=== PATIENT | male | born 1955 | race Caucasian/White ===

== ENCOUNTER 2024-09-21 17:54 | Inpatient (IN) | payer OTHER ==
[~2024-09-21] VITALS: Ht 172.7 cm; Wt 136.0 kg
--- NOTE | 2024-09-21 18:25 | DVH ---
EXAMINATION: AP portable chest radiograph CLINICAL HISTORY: Shortness of breath COMPARISON: None FINDINGS: Interstitial prominence. Diffuse patchy airspace opacities in both lungs, more apparent on the right. No definite pleural effusion or pneumothorax. Aortic calcifications. The cardiomediastinal silhouet te otherwise appears within normal limits given technique. IMPRESSION: Multifocal airspace opacities may reflect infection and/or edema.
[2024-09-21] MEDS: ALBUTEROL SULF 2.5 MG/0.5ML(0.5%) NEB SOLN NEB ONE ×2 (18:36→20:59)
[2024-09-21] MEDS: IPRATROPIUM BROM 0.5 MG/2.5ML INH SOL NEB ONE ×2 (18:36→20:59)
[2024-09-21 18:38] LABS: Basophils # (auto) 0.1 10 ^3/uL (0-0.2); Basophils % (auto) 0.9 % (0.0-2.0); Eosinophils # (auto) 0.3 10 ^3/uL (0-0.8); Eosinophils % (auto) 3.3 % (0.0-7.0); Hematocrit 42.5 % (41.0-53.0); Hemoglobin 14.3 g/dL (13.5-17.5); Lymphocytes # (auto) 1.3 10 ^3/uL (0.4-5.4); Lymphocytes % (auto) 16.1 % (10.0-50.0); Mean Corpuscular Hgb Conc. 33.5 g/dL (32.0-36.0); Mean Corpuscular Volume 86.4 fL (80.0-100.0); Monocytes # (auto) 0.5 10 ^3/uL (0-1.3); Monocytes % (auto) 6.8 % (0.0-12.0); Neutrophils # (auto) 5.9 10 ^3/uL (1.6-8.6); Neutrophils % (auto) 72.9 % (37.0-80.0); Nucleated Red Blood Cells % 0.7 %; Platelet Count (auto) 412 10^3/uL (140-450); Red Blood Cells 4.92 10^6/uL (4.5-5.90); Red Cell Distribution Width 14.3 % (11.8-14.3)
[2024-09-21 18:39] LABS: Chloride 98 mmol/L (98-107); Sodium 136 mmol/L (136-145)
[2024-09-21 18:40] LABS: Anion Gap 9 (5-15); Calcium 9.1 mg/dL (8.7-10.4); Carbon Dioxide 29 mmol/L (20-31)
[2024-09-21] MEDS: DexAMETHasone SOD PHOS 10MG/1ML VIAL INJ IV ONE (18:40)
--- NOTE | 2024-09-21 18:41 | ECG ---
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
[2024-09-21 18:45] LABS: BUN/Creatinine Ratio 24.5 (10.0-20.0)
[2024-09-21 18:47] LABS: Blood Urea Nitrogen 35 mg/dL (9-23); Glucose 280 mg/dL (74-106); Potassium 3.5 mmol/L (3.5-5.1)
[2024-09-21 19:20] VITALS: PULSE 88; RESP 20; O2SAT 90
[2024-09-21] MEDS: AZITHROMYCIN 500MG/ 250ML 250 ML IV ONE (20:15)
--- NOTE | 2024-09-21 20:25 | ED.PDOC ---
History of Present Illness HPI Comments 69 y/o M, with a history of asthma, DM, HTN, and morbid obesity, is BIBA for c/o shortness of breath and mild chest pain, today. Per EMS report, patient endorses on sudden additional onset of symptoms, today, after dealing with flu-like symptoms prior for 1 week. He is stated to have, recently, returned from [place] trip. Patient was noted to have been found on 85%RA on scene and was placed on 4lpm NC en route, with SPO2 improving to 95% upon arrival to ED. Patient has no reported palpitations, nausea, vomiting, fever, chills, or other associated symptoms or modifiers at this time. Chief Complaint: Shortness of Breath Time Seen by MD: 18:00 Reviewed Notes: Nurses Notes, Store Receiving Clerk Notes, Medications, Allergies Allergies: Coded Allergies: Penicillins (Verified Allergy, Unknown, 09/21/24) Information Source: Patient, Emergency Med Personnel Mode of Arrival: EMS Severity: Moderate Timing: Hours Duration: Since onset Prehospital treatment: 12 Lead EKG, Civil Structural Engineer, Oxygen Past Medical History PAST MEDICAL HISTORY: Asthma, DM, HTN Surgical History: Denies all surgeries Family History Family History: Unknown Social History Smoker: Non-Smoker Alcohol: Denies ETOH Use Drugs: Denies Drug Use Lives In: Home Constitutional: denies: chills, diaphoresis, fatigue, fever, malaise, sweats, weakness, others EENTM: denies: blurred vision, double vision, ear bleeding, ear discharge, ear drainage, ear pain, ear ringing, eye pain, eye redness, hearing loss, mouth pain, mouth swelling, nasal discharge, nose bleeding, nose congestion, nose pain, photophobia, tearing, throat pain, throat swelling, voice changes, others Respiratory: reports: shortness of breath; denies: cough, hemoptysis, orthopnea, SOB at rest, SOB with excertion, stridor, wheezing, others Cardiovascular: reports: chest pain; denies: dizzy spells, diaphoresis, Dyspnea on exertion, edema, irregular heart beat, left arm pain, lightheadedness, pa lpitations, PND, syncope, others Gastrointestinal: denies: abdomen distended, abdominal pain, blood streaked bowels, constipated, diarrhea, dysphagia, difficulty swallowing, hematemesis, melena, nausea, poor appetite, poor fluid intake, rectal bleeding, rectal pain, vomiting, others Genitourinary: denies: burning, dysuria, flank pain, frequency, hematuria, incontinence, penile discharge, penile sore, pain, testicle pain, testicle swelling, urgency, others Neurological: denies: dizziness, fainting, headache, left sided numbness, left sided weakness, numbness, paresthesia, pre-existing deficit, right sided numbness, right sided weakness, seizure, speech problems, tingling, tremors, weakness, others Musculoskeletal: denies: back pain, gout, joint pain, joint swelling, muscle pain, muscle stiffness, neck pain, others Integumetry: denies: bruises, change in color, change in hair/nails, dryness, laceration, lesions, lumps, rash, wounds, others Allergic/Immunocompromised: denies: Difficulty Healing, Frequent Infections, Hives, Itching, others Hematologic/Lymphatic: denies: anemia, blood clots, easy bleeding, easy br uising, swollen glands, others Endocrine: denies: excessive hunger, excessive sweating, excessive thirst, excessive urination, flushing, intolerance to cold, intolerance to heat, unexplained weight gain, unexplained weight loss, others Psychiatric: denies: anxiety, bipolar disorder, depression, hopeless, panic disorder, schizophrenia, sleepless, suicidal, others All Other Systems: Reviewed and Negative (negative unless otherwise stated above or in HPI) Physical Exam General Appearance: Moderate Distress (Moderate distress due to shortness a breath concerns), Obese HEENT: Normal ENT Inspection, Pharynx Normal, TMs Normal Neck: Full Range of Motion, Non-Tender, Normal, Normal Inspection Respiratory: Other (Course breath sounds noted in multiple areas of bilateral lung hinson. No accessory muscle use, but air hunger without oxygen.) Cardiovascular: No Edema, No JVD, No Murmur, No Gallop, Normal Peripheral Pulses, Regular Rate/Rhythm Breast Exam: Deferred Gastrointestinal: No Organomegaly, Non Tender, No Pulsatile Mass, Normal Bowel Sounds, Soft Genitalia: Deferred Pelvic: Deferred Rectal: Deferred Extremities: No calf tenderness, Normal capillary refill, Normal inspection, Normal range of motion, Non-tender, No pedal edema Neurologic: Alert, No Motor Deficits, Normal Affect, Normal Mood, No Sensory Deficits Cerebellar Function: Normal Reflexes: Normal Skin: Dry, Normal Color, Warm Lymphatic: No Adenopathy Was a procedure done? Was a procedure done?: No EKG EKG : Pulse Rate (adult): 91 [place]: Normal Cardiac Rhythm: NSR Block: RBBB Hypertrophy: None ST: Normal Differential Dx Considerations may include: URI, viral syndrome, bronchitis, PNA, [place], asthma exacerbation, acute respiratory distress X-Ray, Labs, Meds, VS Vital Signs Date Time Temp Pulse Resp B/P (MAP) Pulse Ox O2 Delivery O2 Flow Rate FiO2 09/21/24 20:59 22 90 Nasal Cannula* 5 40 09/21/24 20:25 91 09/21/24 20:00 89 09/21/24 19:20 88 20 90 Nasal Cannula* 5 40 09/21/24 18:36 20 93 Nasal Cannula* 4 36 09/21/24 18:30 86 09/21/24 18:16 98.2 88 24 197/89 (125) 96 09/21/24 18:13 24 96 Nasal Cannula* 4 36 Lab Test 09/21/24 19:15 09/21/24 18:19 Range/Units Troponin I High Sensitivity 19 19 </=54 ng/L White Blood Count 8.0 4.4-10.8 10^3/uL Red Blood Count 4.92 4.5-5.90 10^6/uL Hemoglobin 14.3 13.5-17.5 g/dL Hematocrit 42.5 41.0-53.0 % Mean Corpuscular Volume 86.4 80.0-100.0 fL Mean Corpuscular Hemoglobin 29.0 28.0-32.0 pg Mean Corpuscular Hemoglobin Concent 33.5 32.0-36.0 g/dL Red Cell Distribution Width 14.3 11.8-14.3 % Platelet Count 412 140-450 10^3/uL Mean Platelet Volume 7.2 6.9-10.8 fL Neutrophils (%) (Auto) 72.9 37.0-80.0 % Lymphocytes (%) (Auto) 16.1 10.0-50.0 % Monocytes (%) (Auto) 6.8 0.0-12.0 % Eosinophils (%) (Auto) 3.3 0.0-7.0 % Basophils (%) (Auto) 0.9 0.0-2.0 % Neutrophils # (Auto) 5.9 1.6-8.6 10 ^3/uL Lymphocytes # (Auto) 1.3 0.4-5.4 10 ^3/uL Monocytes # (Auto) 0.5 0-1.3 10 ^3/uL Eosinophils # (Auto) 0.3 0-0.8 10 ^3/uL Basophils # (Auto) 0.1 0-0.2 10 ^3/uL Nucleated Red Blood Cells 0.7 % D-Dimer, Quantitative 2.37 H 0.0-0.49 mg/L FEU Sodium Level 136 136-145 mmol/L Potassium Level 3.5 3.5-5.1 mmol/L Chloride Level 98 98-107 mmol/L Carbon Dioxide Level 29 20-31 mmol/L Anion Gap 9 5-15 Blood Urea Nitrogen 35 H 9-23 mg/dL Creatinine 1.43 H 0.700-1.30 mg/dL Glomerular Filtration Rate Calc 53 >90 mL/min BUN/Creatinine Ratio 24.5 H 10.0-20.0 Serum Glucose 280 H 74-106 mg/dL Calcium Level 9.1 8.7-10.4 mg/dL B-Type Natriuretic Peptide 150.58 0-100 pg/mL Current Medications Medications (Trade) Dose Ordered Sig/Cinthia Route Start Time Stop Time Status Last Admin Albuterol (Ventolin Medneb) 5 mg ONCE ONCE NEB 09/21/24 18:15 09/21/24 18:16 DC 09/21/24 18:36 Ipratropium [place] (Atrovent Medneb) 0.5 mg ONCE ONCE NEB 09/21/24 18:15 09/21/24 18:16 DC 09/21/24 18:36 Dexamethasone Sodium Phosphate (Decadron Injection) 10 mg ONCE ONCE IV 09/21/24 18:15 09/21/24 18:16 DC 09/21/24 18:40 Azithromycin 250 ml @ 125 mls/hr ONCE ONCE IV 09/21/24 19:15 09/21/24 21:14 DC 09/21/24 20:15 Albuterol (Ventolin Medneb) 5 mg ONCE ONCE NEB 09/21/24 21:00 09/21/24 21:01 DC 09/21/24 20:59 Ipratropium [place] (Atrovent Medneb) 0.5 mg ONCE ONCE NEB 09/21/24 21:00 09/21/24 21:01 DC 09/21/24 20:59 [place] [id number] Ph: [phone] DIAGNOSTIC IMAGING Diagnostic Imaging Report : [id number] Signed PATIENT: JONAS LYON ACCT: [id number] UNIT: [id number] : 1955 LOC: ER ROOM / BED: / AGE / SEX: 69 / M ADM STATUS: REG ER SERVICE 03 ORDERING PHYSICIAN: MALA ROE PAC PROCEDURE(s): CXRP - CHEST PORTABLE REASON: Shortness of breath ORDER NUMBER(s): [id number], ACCESSION NUMBER(s): [id number] EXAMINATION: AP portable chest radiograph CLINICAL HISTORY: Shortness of breath COMPARISON: None FINDINGS: Interstitial prominence. Diffuse patchy airspace opacities in both lungs, more apparent on the right. No definite pleural effusion or pneumothorax. Aortic calcifications. The cardiomediastinal silhouette otherwise appears within normal limits given technique. IMPRESSION: Multifocal airspace opacities may reflect infection and/or edema. ATED BY: ERVIN SERRANO MD DICTATED DATE/TIME: 09/21/241821 SIGNED BY: ERVIN SERRANO MD SIGNED DATE/TIME: 09/21/241821 CC: X-Ray, Labs, Meds, VS Comment All studies performed in the ED were evaluated by me personally. Laboratories revealed a hyperglycemic state with signs of possibly acute on chronic renal concerns. Imaging studies confirmed multifocal airspace opacities indicative of pneumonia. Patient required and up to 5 L of oxygen to saturate in the low 90s. Patient will be admitted for pneumonia and acute respiratory distress. Time of 1ST Reevaluation: 21:22 Reevaluation 1ST: Improved Consultation: PCP Patient Education/Counseling: Diagnosis, Treatment Family Education/Counseling: Diagnosis, Treatment, No Family Present Departure 1 Departure Time of Disposition: 21:23 Impression: Primary Impression: Acute respiratory distress Additional Impression: Pneumonia Disposition: ADMITTED INPATIENT Condition: Fair Discharged With: Self Critical Care Note Critical Care Time?: No Stability Stability form required: No Heart Score Heart Score: Heart Score Response (Comments) Value History Slightly Suspicious 0 EKG Normal 0 Age >65 2 Risk Factors >3 or Hx ASHD 2 Troponin Normal limit 0 Total 4 I personally scribed for MALA ROE PAC ([email or web address]) on 09/21/24 at 20:25. Electronically submitted by Patrick Santiago ([email or web address]). MALA ROE PAC Sep 21, 2024 20:25
[2024-09-21] MEDS ORDERED: NITROGLYCERIN 0.4 MG SL TAB SL PRN (22:30)
[2024-09-21] MEDS: cefTRIAXone 1GM/50ML D5W 50 ML IV SCH (22:30)
[2024-09-21] MEDS: LOSARTAN POTASSIUM 50 MG TAB PO ONE (22:30)
[2024-09-21] MEDS ORDERED: DEXTROSE (50%) 50ML SYRG IV PRN (22:30)
[2024-09-21] MEDS ORDERED: MORPHINE SULFATE INJ 2 MG/ml SYRG IV PRN (22:30)
--- NOTE | 2024-09-21 22:44 | DVH ---
Bilateral lower extremity venous duplex Clinical History: rule out dvt Comparison: None Technique: Duplex Doppler evaluation of the deep venous systems of both lower extremities from the common femora l veins to the popliteal veins including color Doppler and spectral/pulsed waveform analysis was perf ormed. Findings: RIGHT SIDE: The common femoral vein demonstrates appropriate compressibility and waveform variability. There is compressibility/patency of the great saphenous vein at the proximal thigh. The femoral vein demonstrates appropriate compressibility and waveform variability. The deep femoral vein demonstrates appropriate compressibility and waveform variability. The popliteal vein demonstrates appropriate compressibility and waveform variability. There is normal compressibility at the tibioperoneal trunk. LEFT SIDE: The common femoral vein demonstrates appropriate compressibility and waveform variability. There is compressibility/patency of the great saphenous vein at the proximal thigh. The femoral vein demonstrates appropriate compressibility and waveform variability. The deep femoral vein demonstrates appropriate compressibility and waveform variability. The popliteal vein demonstrates appropriate compressibility and waveform variability. There is normal compressibility at the tibioperoneal trunk. Impression: No right or left femoropopliteal venous thrombosis.
[2024-09-21] MEDS: SODIUM CHLORIDE 0.9% 500 ML IV ONE (22:45)
[2024-09-21 23:10] LABS: Base Excess 1.3 mmol/L (-2.0-3.0)
[2024-09-22] VITALS (14 sets, daily range): BP systolic 140–170; BP diastolic 70–86; PULSE 73–97; RESP 18–20; TEMP 97.5–98.8; O2SAT 92–99
[2024-09-22 00:20] LABS: Urine Bacteria None Seen /hpf (None Seen)
[2024-09-22 00:32] LABS: COVID19 ANTIGEN SOFIA FIA NEGATIVE (NEGATIVE); Rapid Influenza A Negative (Negative); Rapid Influenza B Negative (Negative)
[2024-09-22 00:38] LABS: Urine Blood 1+ /uL (Negative); Urine Clarity Clear (Clear); Urine Color Yellow (Yellow); Urine Protein, UAD 3+ (Negative); Urine Specific Gravity 1.013 (1.001-1.035); Urine Squamous Epithelial Cell None Seen /hpf (<5); Urine Urobilinogen 2 mg/dL (Negative); Urine WBC 1 /HPF (0-3)
[2024-09-22] MEDS ORDERED: IPRATROPIUM BROM 0.5 MG/2.5ML INH SOL NEB SCH (02:00)
[2024-09-22] MEDS ORDERED: ALBUTEROL SULF 2.5 MG/0.5ML(0.5%) NEB SOLN NEB SCH (02:00)
--- NOTE | 2024-09-22 02:28 | DVHHPRES ---
History of Present Illness Resident Creating Document: LADAN HARRINGTON RESIDENT Reason for Visit: acute respiratory failure History of Present Illness This is a 69-year-old male with a past medical history of hypertension, diabetes mellitus, hyperlipidemia, asthma, and morbid obesity who presents with worsening shortness of breath and chest tightness. The patient reports that he was on a cruise ship and started experiencing a cough productive of greenish sputum on Sep 17 . He also noted progressive dyspnea and checked his oxygen saturation at home, which was 76%. He had access to home oxygen through his daughter and had been using it, but today his shortness of breath worsened, prompting his visit to the hospital. Upon arrival, his SpO2 was 85% on room air and improved to 95% on 4L NC. A D- dimer was positive, and due to his acute kidney injury (ELIER), a CT angiogram was deferred in favor of a V/Q scan. He was started on albuterol, azithromycin, ceftriaxone, and continued on home medications, including Lantus 30 units and a mild insulin sliding scale. IV fluids were initiated for ELIER. Past Medical History Hypertension Diabetes mellitus Hyperlipidemia Asthma Morbid obesity Sleep apnea Allergies Penicillin allergy Social History Non-smoker Denies alcohol or drug use Lives at home with family Review of Systems Constitutional: Yes: Malaise; No: Fever, Chills, Sweats, Weakness, Other Eyes: No: Pain, Vision change, Conjunctivae inflammation, Eyelid inflammation, Other, Redness ENT: No: Ear pain, Ear discharge, Nose pain, Nose discharge, Nose congestion, Mouth pain, Mouth swelling, Throat pain, Throat swelling, Other Respiratory: Cough, Shortness of breath; No: Dry, SOB with excertion, Wheezing, Hemoptysis, Pleuritic Pain, Sputum, Wheezing, Other Gastrointestinal: No: Nausea, Vomiting, Abdominal Pain, Diarrhea, Constipation, Melena, Hematochezia, Other Genitourinary: No Dysuria, No Frequency, No Incontinence, No Hematuria, No Retention, No Other Musculoskeletal: No: other, neck pain, shoulder pain, arm pain, back pain, hand pain, leg pain, foot pain Skin: No: Rash, Lesions, Jaundice, Bruising, Other Neurological: No: Weakness, Numbness, Incoordination, Change in speech, Confusion, Seizures, Other Allergies: Coded Allergies: Penicillins (Verified Allergy, Unknown, 09/21/24) Medications Current Medications Medications Dose Ordered Sig/Cinthia Route Start Time Stop Time Status Last Admin Dose Admin Nitroglycerin 0.4 mg Q5MINP PRN SL 09/21/24 22:30 Morphine Sulfate 2 mg Q30M PRN IV 09/21/24 22:30 Ceftriaxone Sodium 50 ml @ 100 mls/hr DAILY IV 09/21/24 22:30 09/21/24 22:30 100 MLS/HR Azithromycin 250 ml @ 125 mls/hr DAILY IV 09/22/24 10:00 Diagnostic Test (Pha) 1 strip ACHS 09/22/24 07:00 Insulin Human Regular ACHS SC 09/22/24 07:00 Dextrose 50 ml UD PRN IV 09/21/24 22:30 Fluoxetine HCl 20 mg DAILY PO 09/22/24 10:00 Albuterol 2.5 mg Q4HPRN NEB 09/22/24 02:00 Ipratropium [place] 0.5 mg Q4HPRN NEB 09/22/24 02:00 Enoxaparin Sodium 140 mg DAILY SC 09/22/24 10:00 UNV Insulin Glargine 30 units HS SC 09/22/24 22:00 Exam Vital Signs Vital Signs Date Time Temp Pulse Resp B/P (MAP) Pulse Ox O2 Delivery O2 Flow Rate FiO2 09/22/24 01:30 97 19 145/75 (98) 92 09/21/24 20:59 Nasal Cannula* 5 40 09/21/24 19:35 98.8 98.8 General Appearance: Alert, Oriented X3, Cooperative, mild distress HEENT: Atraumatic, PERRLA, EOMI, Mucous membr. moist/pink Respiratory: Clear to auscultation Cardiovascular: Regular rate, Normal S1, Normal S2 Abdominal: Normal bowel sounds, Soft, No tenderness Extremities: No clubbing, No cyanosis, No edema Skin: No rashes, No breakdown, No significant lesion Neuro: Normal gait, Normal speech, Strength at 5/5 X4 ext Psych/Mental Status: Mental status NL, Mood NL, Other Labs/Xrays Labs Test 09/22/24 00:00 09/21/24 23:55 09/21/24 23:03 09/21/24 22:40 Range/Units Influenza Type A Antigen Negative Negative Influenza Type B Antigen Negative Negative SARS-CoV-2 Antigen (Rapid) Negative NEGATIVE Urine Color Yellow Yellow Urine Clarity Clear Clear Urine pH 6.0 5.0-9.0 Urine Specific [place] 1.013 1.001-1.035 Urine Protein 3+ H Negative Urine Ketones Trace Negative Urine Blood 1+ H Negative /uL Urine Nitrite Negative Negative Urine Bilirubin Negative Negative Urine Urobilinogen 2 H Negative mg/dL Urine Leukocyte Esterase Negative Negative /uL Urine RBC 4 0 - 3 /hpf Urine Microscopic WBC 1 0-3 /HPF Urine Squamous Epithelial Cells None seen <5 /hpf Urine Bacteria None seen None Seen /hpf Urine Glucose 3+ H Normal mg/dL Blood Gas Specimen Type Arterial Blood Gas Sample Site Left radial Blood Gas Patient Temperature 37.0 Arterial Blood Date Drawn [id number] Arterial Blood pH 7.420 7.350-7.450 Arterial Blood Partial Pressure CO2 40.8 35.0-48.0 mmHg Arterial Blood Partial Pressure O2 68.3 L 83.0-108.0 mmHg Arterial Blood HCO3 25.9 21.0-28.0 mmol/L Arterial Blood Oxygen Saturation 92.4 L 94.0-98.0 % Arterial Blood Base Excess 1.3 -2.0-3.0 mmol/L Arterial Blood Oxyhemoglobin 90.6 L 94.0-98.0 % Arterial Blood Carboxyhemoglobin 1.6 H 0.5-1.5 % Arterial Blood Methemoglobin 0.4 0.0-1.5 % Hunter Test Yes Blood Gas Total Hemoglobin 13.20 L 13.5-17.5 g/dL Blood Gas Liter Flow 5.00 Blood Gas Modality Nasal cannula FiO2 % 40.0 Hemoglobin A1c 8.5 H <5.7 % A1C Lactic Acid Level 1.5 0.4-2.0 mmol/L C-Reactive Protein High Sensitivity 8.79 H <1.0 mg/dL Thyroid Stimulating Hormone (TSH) 1.51 0.55-4.78 uIU/mL Test 09/21/24 19:15 09/21/24 18:19 Range/Units Troponin I High Sensitivity 19 </=54 ng/L White Blood Count 8.0 4.4-10.8 10^3/uL Red Blood Count 4.92 4.5-5.90 10^6/uL Hemoglobin 14.3 13.5-17.5 g/dL Hematocrit 42.5 41.0-53.0 % Mean Corpuscular Volume 86.4 80.0-100.0 fL Mean Corpuscular Hemoglobin 29.0 28.0-32.0 pg Mean Corpuscular Hemoglobin Concent 33.5 32.0-36.0 g/dL Red Cell Distribution Width 14.3 11.8-14.3 % Platelet Count 412 140-450 10^3/uL Mean Platelet Volume 7.2 6.9-10.8 fL Neutrophils (%) (Auto) 72.9 37.0-80.0 % Lymphocytes (%) (Auto) 16.1 10.0-50.0 % Monocytes (%) (Auto) 6.8 0.0-12.0 % Eosinophils (%) (Auto) 3.3 0.0-7.0 % Basophils (%) (Auto) 0.9 0.0-2.0 % Neutrophils # (Auto) 5.9 1.6-8.6 10 ^3/uL Lymphocytes # (Auto) 1.3 0.4-5.4 10 ^3/uL Monocytes # (Auto) 0.5 0-1.3 10 ^3/uL Eosinophils # (Auto) 0.3 0-0.8 10 ^3/uL Basophils # (Auto) 0.1 0-0.2 10 ^3/uL Nucleated Red Blood Cells 0.7 % D-Dimer, Quantitative 2.37 H 0.0-0.49 mg/L FEU Sodium Level 136 136-145 mmol/L Potassium Level 3.5 3.5-5.1 mmol/L Chloride Level 98 98-107 mmol/L Carbon Dioxide Level 29 20-31 mmol/L Anion Gap 9 5-15 Blood Urea Nitrogen 35 H 9-23 mg/dL Creatinine 1.43 H 0.700-1.30 mg/dL Glomerular Filtration Rate Calc 53 >90 mL/min BUN/Creatinine Ratio 24.5 H 10.0-20.0 Serum Glucose 280 H 74-106 mg/dL Calcium Level 9.1 8.7-10.4 mg/dL B-Type Natriuretic Peptide 150.58 0-100 pg/mL Assessment/Plan Assessment/Plan 69M with PMHx of HTN, DM, hyperlipidemia, and obesity presenting with acute respiratory distress, cough, and hypoxia. Labs & Imaging Chemistry: Elevated BUN (35), creatinine (1.43), hyperglycemia (glucose 280), elevated HbA1c (8.5) Blood Gas: pH 7.42, pCO2 40.8, pO2 68.3 on nasal cannula, FiO2 40% Chest X-ray: Multifocal airspace opacities, suggestive of pneumonia D-Dimer: Positive ? V/Q scan ordered due to ELIER #Acute Hypoxic Respiratory Failure #Pneumonia gram +/ gram neg (multifocal opacities on CXR) Continue azithromycin and ceftriaxone Oxygen therapy as needed: 5LT Breathing treatments #Rule out Pulmonary Embolism (elevated D-dimer) V/Q scan ordered due to ELIER Leg US neg DVT #Hypertensive emergency resolved with ELIER #ELIER due to hypertensive emergency IV fluids Monitor renal function Losartan 50 mg #Diabetes Continue Lantus and insulin sliding scale Monitor glucose levels Case discussed with Dr Livingston Time spent on care 23 min Plan discussed with: Patient, Other (rn) My Orders Orders - LADAN HARRINGTON RESIDENT Procedure Category Date Status Time Abg W/ Co-Ox RT 09/21/24 Logged 21:57 Bilat Lower Dvt US 09/21/24 Resulted 21:57 Mrsa Screen KALLIE 09/21/24 Logged 21:57 Respiratory Culture KALLIE 09/21/24 Logged W/ Gs 21:57 Admit ADMIT 09/21/24 Transmitted 22:22 Nitroglycerin PHA 09/21/24 In Process Sublingual (Ntrostat 22:30 Morphine Sulfate PHA 09/21/24 In Process Injection 22:30 Oxygen By Nasal RT 09/21/24 Transmitted Cannula 22:22 Stat Ekg For Chest GISELLE 09/21/24 In Process Pain 22:22 Notify Md Of Changes GISELLE 09/21/24 In Process From Base 22:22 Housing Specialist For GISELLE 09/21/24 In Process 24 Hours 22:22 Emergency Dysrhythmia GISELLE 09/21/24 In Process Protocol 22:22 Rhythm Strips Once GISELLE 09/21/24 In Process Every Shift 22:22 Ceftriaxone 1gm/50ml PHA 09/21/24 In Process D5w (Rocephin) 22:30 Azithromycin 500mg/ PHA 09/22/24 In Process 250ml (Zithromax 50 10:00 Glucose Blood PHA 09/22/24 In Process (Accu-Chek Comfort 07:00 Insulin R (Human) PHA 09/22/24 In Process (Insulin R) 07:00 Dextrose 50% Syringe PHA 09/21/24 In Process 22:30 Fluoxetine Capsule PHA 09/22/24 In Process (Prozac Capsule) 10:00 Albuterol Medneb PHA 09/22/24 In Process (Ventolin Medneb) 02:00 Ipratropium Medneb PHA 09/22/24 In Process (Atrovent Medneb) 02:00 Consistent DIET 09/22/24 Transmitted Carb(Ccho)Diabetes Breakfast Bipap/Cpap For Sleep RT 09/21/24 Logged Apnea 22:53 Enoxaparin Sodium PHA 09/22/24 Pending (Lovenox) 10:00 Insulin Lantus PHA 09/22/24 In Process (Glargine) (Lantus) 22:00 Nm Vq Scan NM 09/21/24 Logged 23:37 Date of Service: Sep 22, 2024 Billing Provider: FABIOLA LIVINGSTON MD Common Visit Codes: [id number] INP/OBS CARE (HIGH) LADAN HARRINGTON RESIDENT Sep 22, 2024 02:28 FABIOLA LIVINGSTON MD Sep 24, 2024 16:29
[2024-09-22] MEDS ORDERED: CLON0.1T PO (04:16)
[2024-09-22] MEDS: cloNIDine HCL 0.1 MG TAB PO PRN (05:01)
[2024-09-22] MEDS ORDERED: GLIP10TA9 PO (05:20)
[2024-09-22] MEDS ORDERED: LOSA100T25 PO (05:20)
[2024-09-22] MEDS ORDERED: LOVA10TA2 PO (05:20)
[2024-09-22] MEDS ORDERED: METF-370 PO (05:20)
[2024-09-22] MEDS ORDERED: AMLO1TAB23 PO (05:20)
[2024-09-22] MEDS ORDERED: ASPI1TAB20 PO (05:20)
[2024-09-22] MEDS ORDERED: GAB100C GT (05:20)
[2024-09-22] MEDS ORDERED: FLUO20TA42 PO (05:20)
[2024-09-22] MEDS: ACCU-CHEK COMFORT CURVE STRIP VI SCH (06:09)
[2024-09-22] MEDS: InsuLIN REG 1unit/0.01ml Soln (100units/ml) SC SCH (06:16)
[2024-09-22 09:28] LABS: Basophils # (auto) 0 10 ^3/uL (0-0.2); Basophils % (auto) 0.5 % (0.0-2.0); Eosinophils # (auto) 0 10 ^3/uL (0-0.8); Eosinophils % (auto) 0.1 % (0.0-7.0); Hematocrit 37.5 % (41.0-53.0); Hemoglobin 12.4 g/dL (13.5-17.5); Lymphocytes # (auto) 0.6 10 ^3/uL (0.4-5.4); Mean Corpuscular Hemoglobin 28.7 pg (28.0-32.0); Monocytes # (auto) 0.5 10 ^3/uL (0-1.3); Monocytes % (auto) 5.7 % (0.0-12.0); Neutrophils # (auto) 7.7 10 ^3/uL (1.6-8.6); Neutrophils % (auto) 86.7 % (37.0-80.0); Nucleated Red Blood Cells % 0.2 %; Platelet Count (auto) 412 10^3/uL (140-450); Red Blood Cells 4.31 10^6/uL (4.5-5.90); Red Cell Distribution Width 14.2 % (11.8-14.3); White Blood Cell 8.9 10^3/uL (4.4-10.8)
[2024-09-22 09:47] LABS: INR 1.09 (0.9-1.15); Partial Thromboplastin Time 29.1 SEC (24.5-34.5); Prothrombin Time 11.5 sec (9.3-11.8)
[2024-09-22 09:50] LABS: Alanine Aminotransferase 17 U/L (7-40); Alkaline Phosphatase 52 U/L (46-116); Anion Gap 9 (5-15); BUN/Creatinine Ratio 20.3 (10.0-20.0); Carbon Dioxide 29 mmol/L (20-31); Chloride 100 mmol/L (98-107); Magnesium 2.4 mg/dL (1.6-2.6); Potassium 3.9 mmol/L (3.5-5.1); Sodium 138 mmol/L (136-145)
[2024-09-22 09:51] LABS: Aspartate Aminotransferase 15 U/L (13-40); Bilirubin, Total 0.7 mg/dL (0.2-1.0); Phosphorus 3.3 mg/dL (2.4-5.1); Total Protein 6.7 g/dL (5.7-8.2)
[2024-09-22 09:58] LABS: Blood Urea Nitrogen 32 mg/dL (9-23); Calcium 8.5 mg/dL (8.7-10.4); Glucose 333 mg/dL (74-106)
[2024-09-22] MEDS ORDERED: ENOXAPARIN SOD 150 MG/1 ML SYRINGE SC SCH (10:00)
[2024-09-22] MEDS ORDERED: ENOXAPARIN SOD 150 MG/1 ML SYRINGE SC ONE (10:00)
[2024-09-22] MEDS: LOSARTAN POTASSIUM 50 MG TAB PO SCH (11:48)
[2024-09-22] MEDS: FLUoxetine HCL 20 MG CAP PO SCH (11:48)
[2024-09-22] MEDS: AZITHROMYCIN 500MG/ 250ML 250 ML IV SCH (11:49)
[2024-09-22] MEDS: ENOXAPARIN SOD 100 MG/1 ML SYRINGE SC ONE (11:50)
[2024-09-22] MEDS: CALCIUM GLUC 1,000mg/50ml-NS 50 ML IV ONE (12:39)
[2024-09-22] MEDS ORDERED: SODIUM CHLORIDE 0.9% 1,000 ML IV SCH (19:30)
--- NOTE | 2024-09-22 19:34 | DVHPNRES ---
Progress Note Date Seen: Sep 22, 2024 Resident Creating Document: RUFINA CARUSO RESIDENT Medical Necessity Reason Pt with a Central, PICC or Fol: No Subjective Review of Systems Robert Johnson is a 69-year-old male who presents to the ED with progressive dyspnea from functional class II to function class IV, associated with productive cough with green sputum and oppressive retrosternal chest triggered by coughing. Patient reports symptoms started after being exposed and a cruise ship with sick contacts. Patient has pulse ox at home and evidence 76% saturation, use oxygen that daughter had, and probably visited the ER. Denies any other associated symptoms. Past Medical History Hypertension, Diabetes mellitus, Hyperlipidemia Asthma Morbid obesity ,Sleep apnea with requirement of CPAP during nights Surgical history: Denies Family history: Noncontributory Social history: Lives in [place] with family. Denies current or history of tobacco, alcohol and other drug abuse. He does report secondhand smoking (mother used to be a chain smoker) Allergies: Penicillin Home medication: Aspirin 81 mg p.o. daily, clonidine, gabapentin 100 mg p.o. daily, metformin 500 mg p.o. b.i.d., amlodipine 10 mg p.o. daily, fluoxetine 20 mg p.o. daily, glipizide 10 mg p.o. b.i.d., losartan 50 mg p.o. daily, lovastatin 10 mg p.o. daily, Lantus Patient seen and examined at bedside. Currently has no new complaints, dyspnea mildly has improved, but he continues with same oxygen requirement (nasal cannula 5 liters/minute) Objective vital signs Vital Sign Date Time Temp Pulse Resp B/P (MAP) Pulse Ox O2 Delivery O2 Flow Rate FiO2 09/22/24 17:00 97.5 75 18 164/86 (112) 98 97.5 09/22/24 08:05 Nasal Cannula* 5 40 Total Intake and Output 09/21/24 09/21/24 09/22/24 15:00 23:00 07:00 Intake Total 0 ml Output Total 745 ml Balance -745 ml medications Current Medications Medications Dose Ordered Sig/Cinthia Route Start Time Stop Time Status Last Admin Dose Admin Morphine Sulfate 2 mg Q30M PRN IV 09/21/24 22:30 Ceftriaxone Sodium 50 ml @ 100 mls/hr DAILY IV 09/21/24 22:30 09/22/24 11:49 100 MLS/HR Azithromycin 250 ml @ 125 mls/hr DAILY IV 09/22/24 10:00 09/22/24 11:49 125 MLS/HR Diagnostic Test (Pha) 1 strip ACHS 09/22/24 07:00 09/22/24 17:11 1 STRIP Insulin Human Regular ACHS SC 09/22/24 07:00 09/22/24 17:11 4 UNITS Dextrose 50 ml UD PRN IV 09/21/24 22:30 Fluoxetine HCl 20 mg DAILY PO 09/22/24 10:00 09/22/24 11:48 20 MG Insulin Glargine 30 units HS SC 09/22/24 22:00 Losartan Potassium 50 mg DAILY PO 09/22/24 10:00 09/22/24 11:48 50 MG Clonidine HCl 0.1 mg Q4HP PRN PO 09/22/24 05:00 09/22/24 05:01 0.1 MG Enoxaparin Sodium 140 mg Q12HR SC 09/22/24 22:00 Albuterol 2.5 mg Q4HPRN PRN NEB 09/22/24 17:15 Ipratropium [place] 0.5 mg Q4HPRN PRN NEB 09/22/24 17:15 Examination Patient lying in bed, in no acute distress General: Lucid, afebrile, mucosae are moist Cardiovascular: Normal S1 and S2. No murmurs, gallops or rubs Respiratory: Regular ventilation mechanics, tachypnea, is not using accessory muscles for ventilation. Diffuse generalized bilateral rhonchus predominantly on right side, currently on nasal cannula at 5 liters/minute Abdomen: Soft, nontender, no organomegaly, normal bowel sounds MSK/skin: Mobilizes 4 limbs. Skin is dry and warm Neurological: Oriented in 3 spheres. No motor no sensitive deficits. Pupils are isocoric and reactive laboratory and microbiology Laboratory Tests 09/22/24 08:50 Test 09/22/24 08:50 Range/Units Serum Glucose 333 H 74-106 mg/dL Problem List/Assessment/Plan Problem List/Assessment/Plan # Acute Hypoxic Respiratory Failure probably secondary to pneumonia Currently on oxygen therapy (nasal cannula 5 liters/minute), bronchodilators, IV steroids and empiric IV antibiotics Currently in telemetry status # Pneumonia gram +/ gram neg Chest x-ray evidence multifocal opacities on CXR Currently under empiric IV antibiotic (azithromycin and ceftriaxone) # Rule out Pulmonary Embolism Elevated D-dimer (nonspecific) EKG shows sinus tachycardia, RBBB, S I/Q III/T III. V/Q scan ordered due to ELIER Leg US neg DVT Currently patient is under therapeutic enoxaparin Ordered echocardiogram # Hypertensive emergency Improved with home medication and treatment of hypoxia Gave her advice on healthy lifestyle habits #ELIER due to hypertensive emergency Indicated IV fluids Monitor renal function Losartan 50 mg # Obstructive sleep apnea Indicated CPAP during night # Asthma Continue with bronchodilators treatment # Morbid obesity Gave her advice on healthy lifestyle habits # Diabetes Continue Lantus and insulin sliding scale Monitor glucose levels Goals of care discussed with patient for over 18 minutes: Full code status Case discussed with Dr Fernandez, patient and nurses: Patient still requires high requirements of oxygen therapy, we will benefit from IV antibiotics, IV steroids and bronchodilators at this point. Patient is currently on therapeutic enoxaparin, awaiting V/Q scan for discontinuing anticoagulation. Continue with current management. Plan discussed with: Patient, Other (Nurses) My Orders My Orders Orders - RUFINA CARUSO RESIDENT Procedure Category Date Status Time Drug Screen LAB 09/22/24 Logged 07:09 Urine Bacterial KALLIE 09/22/24 Logged Culture 07:12 Enoxaparin Sodium PHA 09/22/24 In Process (Lovenox) 22:00 Bipap/Cpap For Sleep RT 09/22/24 Logged Apnea 17:40 Date of Service: Sep 22, 2024 Billing Provider: MATT FERNANDEZ MD Common Visit Codes: [id number] INP/OBS CARE(HIGH) RUFINA CARUSO RESIDENT Sep 22, 2024 19:34 MATT FERNANDEZ MD Sep 23, 2024 09:47
[2024-09-22] MEDS: methylPREDNISolone SOD SUCC 40 MG/ML VL IV ONE (20:13)
[2024-09-22] MEDS: SODIUM CHLORIDE 0.9% 1,000 ML IV SCH (20:14)
[2024-09-22] MEDS: ALBUTEROL SULF 2.5 MG/0.5ML(0.5%) NEB SOLN NEB PRN (20:40)
[2024-09-22] MEDS: IPRATROPIUM BROM 0.5 MG/2.5ML INH SOL NEB PRN (20:40)
[2024-09-22] MEDS: ENOXAPARIN SOD 150 MG/1 ML SYRINGE SC SCH (21:18)
[2024-09-22] MEDS: INSULIN LANTUS (GLARGINE) 1 /0.01ml (100units/ml) SC SCH (21:27)
[2024-09-22 23:49] LABS: Amphetamine Screen, Urine Neg (NEGATIVE); Barbiturate Scree,Urine Neg (NEGATIVE); Benzodiazephine Screen, Urine Neg (NEGATIVE); Cannabinoid Screen, Urine Neg (NEGATIVE); Cocaine Screen, Urine Neg (NEGATIVE); Opiate Scree,Urine Neg (NEGATIVE)
[2024-09-22 23:50] LABS: Phencyclidine Screen, Urine Neg (NEGATIVE)
[2024-09-23] VITALS (11 sets, daily range): BP systolic 147–185; BP diastolic 72–101; PULSE 70–96; RESP 18–20; TEMP 97.4–98.9; O2SAT 93–100
[2024-09-23] MEDS ORDERED: DEXTROSE (50%) 50ML SYRG IV PRN (09:15)
[2024-09-23] MEDS: methylPREDNISolone SOD SUCC 40 MG/ML VL IV SCH (09:42)
[2024-09-23] MEDS: ACCU-CHEK COMFORT CURVE STRIP VI SCH (10:49)
[2024-09-23] MEDS: InsuLIN REG 1unit/0.01ml Soln (100units/ml) SC SCH (11:02)
--- NOTE | 2024-09-23 11:49 | DVHPNRES ---
Progress Note Date Seen: Sep 23, 2024 Resident Creating Document: AYLA HARRIS RESIDENT Medical Necessity Reason Pt with a Central, PICC or Fol: No Subjective Review of Systems Robert Johnson is a 69-year-old male who presents to the ED with progressive dyspnea from functional class II to function class IV, associated with productive cough with green sputum and oppressive retrosternal chest triggered by coughing. Patient reports symptoms started after being exposed and a cruise ship with sick contacts. Patient has pulse ox at home and evidence 76% saturation, use oxygen that daughter had, and probably visited the ER. Denies any other associated symptoms. Past Medical History Hypertension, Diabetes mellitus, Hyperlipidemia Asthma Morbid obesity ,Sleep apnea with requirement of CPAP during nights Surgical history: Denies Family history: Noncontributory Social history: Lives in [place] with family. Denies current or history of tobacco, alcohol and other drug abuse. He does report secondhand smoking (mother used to be a chain smoker) Allergies: Penicillin Home medication: Aspirin 81 mg p.o. daily, clonidine, gabapentin 100 mg p.o. daily, metformin 500 mg p.o. b.i.d., amlodipine 10 mg p.o. daily, fluoxetine 20 mg p.o. daily, glipizide 10 mg p.o. b.i.d., losartan 50 mg p.o. daily, lovastatin 10 mg p.o. daily, Lantus Patient seen and examined at bedside. Currently has no new complaints, dyspnea mildly has improved, titrated O2 via NC down to 4 L Objective vital signs Vital Sign Date Time Temp Pulse Resp B/P (MAP) Pulse Ox O2 Delivery O2 Flow Rate FiO2 09/23/24 09:41 147/72 09/23/24 08:49 97.5 74 20 96 97.5 09/23/24 06:52 Nasal Cannula 5.0 09/23/24 06:52 40 Total Intake and Output 09/22/24 09/22/24 09/23/24 15:00 23:00 07:00 Intake Total 300 ml 890 ml 200 ml Output Total 950 ml Balance 300 ml -60 ml 200 ml medications Current Medications Medications Dose Ordered Sig/Cinthia Route Start Time Stop Time Status Last Admin Dose Admin Morphine Sulfate 2 mg Q30M PRN IV 09/21/24 22:30 Ceftriaxone Sodium 50 ml @ 100 mls/hr DAILY IV 09/21/24 22:30 09/23/24 09:46 100 MLS/HR Azithromycin 250 ml @ 125 mls/hr DAILY IV 09/22/24 10:00 09/23/24 11:04 125 MLS/HR Fluoxetine HCl 20 mg DAILY PO 09/22/24 10:00 09/23/24 09:41 20 MG Insulin Glargine 30 units HS SC 09/22/24 22:00 09/22/24 21:27 30 UNITS Losartan Potassium 50 mg DAILY PO 09/22/24 10:00 09/23/24 09:41 50 MG Clonidine HCl 0.1 mg Q4HP PRN PO 09/22/24 05:00 09/23/24 05:31 0.1 MG Enoxaparin Sodium 140 mg Q12HR SC 09/22/24 22:00 09/23/24 09:45 140 MG Albuterol 2.5 mg Q4HPRN PRN NEB 09/22/24 17:15 09/22/24 20:40 2.5 MG Ipratropium [place] 0.5 mg Q4HPRN PRN NEB 09/22/24 17:15 09/22/24 20:40 0.5 MG Methylprednisolone Sodium Succinate 40 mg BID IV 09/23/24 10:00 09/23/24 09:42 40 MG Sodium Chloride 1,000 ml @ 50 mls/hr Q20H IV 09/22/24 20:00 09/22/24 20:14 50 MLS/HR Diagnostic Test (Pha) 1 strip IQ4HR 09/23/24 12:00 09/23/24 10:49 1 STRIP Insulin Human Regular IQ4HR SC 09/23/24 12:00 09/23/24 11:02 12 UNITS Dextrose 50 ml UD PRN IV 09/23/24 09:15 Examination General Appearance: Cooperative. Well developed. Well nourished. NAD Head Exam: Normal inspection Neck Exam: Normal inspection. Non-tender. Normal alignment Pulmonary/Respiratory: Chest non-tender. Clear bilateral breath sounds, no crackles, no wheezing. Cardiovascular/Chest: Regular rate and rhythm. No murmurs. No JVD. Peripheral Pulses: 2+ Radial (R). 2+ Radial (L). 2+ Pedal (R). 2+ Pedal (L) Abdominal Exam: Normal bowel sounds. Soft. normal abdomen, no visible veins, Nontender. No hepatospenomegaly. No masses Ankle Exam: Negative ankle edema Lower extremities: Negative lower extremity edema Neuro/Mental Status: A&O x4. Coherent. Skin Exam: Normal inspection. Normal color. Warm. Dry laboratory and microbiology Laboratory Tests 09/22/24 08:50 Test 09/22/24 08:50 Range/Units Serum Glucose 333 H 74-106 mg/dL Microbiology Date/Time Source Procedure Growth Status 09/22/24 08:50 Blood Blood Culture - Preliminary NO GROWTH AFTER 24 HOURS OF INCUBATION. Resulted 09/22/24 03:18 Nose MRSA Screen - Final Complete Labs and/or images reviewed: Labs reviewed by me, Image(s) reviewed by me Problem List/Assessment/Plan Problem List/Assessment/Plan # Acute Hypoxic Respiratory Failure probably secondary to pneumonia Currently on oxygen therapy (nasal cannula 4 liters/minute), bronchodilators, IV steroids and empiric IV antibiotics Currently in telemetry status # Pneumonia gram +/ gram neg Chest x-ray evidence multifocal opacities on CXR Currently under empiric IV antibiotic (azithromycin and ceftriaxone) # Rule out Pulmonary Embolism Elevated D-dimer (nonspecific) EKG shows sinus tachycardia, RBBB, S I/Q III/T III. V/Q scan ordered due to ELIER Leg US neg DVT Currently patient is under therapeutic enoxaparin Ordered echocardiogram # Hypertensive emergency Improved with home medication and treatment of hypoxia Gave her advice on healthy lifestyle habits Resumed home medication amlodipine 10 mg p.o. daily #ELIER due to hypertensive emergency Indicated IV fluids Monitor renal function Losartan 50 mg # Obstructive sleep apnea Indicated CPAP during night # Asthma Continue with bronchodilators treatment # Morbid obesity Gave her advice on healthy lifestyle habits # Diabetes Continue Lantus and insulin sliding scale Monitor glucose levels Goals of care discussed with patient for over 18 minutes: Full code status Case discussed with Dr Lion, patient and nurses: Patient still requires high requirements of oxygen therapy, we will benefit from IV antibiotics, IV steroids and bronchodilators at this point. Patient is currently on therapeutic enoxaparin, awaiting V/Q scan for discontinuing anticoagulation. Continue with current management. Plan discussed with: Patient, Other (RN) My Orders My Orders Orders - AYLA HARRIS Procedure Category Date Status Time Glucose Blood PHA 09/23/24 In Process (Accu-Chek Comfort 12:00 Insulin R (Human) PHA 2/16/25 In Process (Insulin R) 12:00 Dextrose 50% Syringe PHA 09/23/24 In Process 09:15 Date of Service: Sep 23, 2024 Billing Provider: MATT LION MD Common Visit Codes: [id number] INP/OBS CARE(HIGH) HARRISAYLA RESIDENT Sep 23, 2024 11:49 MATT LION MD Sep 23, 2024 21:54
[2024-09-23] MEDS: amLODIPine BESYLATE 5 MG TAB PO ONE (15:39)
[2024-09-23] MEDS: hydroCHLOROthiazide 25 MG TAB PO ONE (20:17)
[2024-09-24] VITALS (12 sets, daily range): BP systolic 132–168; BP diastolic 60–89; PULSE 65–82; RESP 18–20; TEMP 97.5–98.7; O2SAT 90–99
--- NOTE | 2024-09-24 08:03 | DVHSR ---
APPROVED REPORT EXAM: Two-dimensional and M-mode echocardiogram with Doppler and color Doppler. Blood Pressure: 141/63 mmHg INDICATION Evaluate LVEF RISK FACTORS Obesity: Height: 5'8", Weight: 305 DIMENSIONS LVDd4.9 (3.8-5.7cm)LA (2D)3.9 (1.9-4.0cm)Aortic Root3.7 (2.0-3.7cm) LVDs3.1 (2.5-4.0cm)LA (MM) (1.9-4.0cm)Aortic Cusp Exc1.2 (1.5-2.0cm) EF (%) 60.0 (55-70%)Rt. Atrium4.4 (1.9-4.0cm)Asc. Aorta cm IVSd1.3 (0.7-1.1cm)RV (D) (1.8-2.4cm) PWd1.3 (0.7-1.1cm) Mitral Valve MitralMitral Stenosis E wave1.15m/sMV Mean GR.mmHg A wave1.15m/sMV Peak GR.mmHg E/A ratio1.02D MVAcm2 DECEL [id number] 1/2 Timems Aortic Valve Aortic ValveAortic Stenosis V11.19m/Torey Mean GR.4mmHg V21.41m/Torey Peak GR.8mmHg LVOT Diameter1.9 (1.8-2.4cm)Doppler AVA2.39cm2 Pulmonic Valve V20.93m/s Tricuspid Valve TR Velocity2.69m/s [id number] Other Information Technically limited study due to body habitus. Conclusion lvef 55% by visual estimate mild LVH normal rv function normal atria no severe valve abnormaliteis noted
--- NOTE | 2024-09-24 08:22 | DVH ---
CHEST RADIOGRAPH Indication: SOB Technique: Single frontal view of the chest was obtained Comparison: XY CHEST PORTABLE on DOS: 09/21/24, XY CHEST PORTABLE on DOS: 09/21/24 FINDINGS: Interstitial prominence. Diffuse patchy airspace opacities in both lungs, more apparent on the right. No definite pleural effusion or pneumothorax. Aortic calcifications. The cardiomediastinal silhouet te otherwise appears within normal limits given technique. IMPRESSION: 1. Multifocal airspace opacities may reflect infection and/or edema.
[2024-09-24] MEDS: amLODIPine BESYLATE 5 MG TAB PO SCH (10:38)
[2024-09-24] MEDS: hydroCHLOROthiazide 25 MG TAB PO SCH (10:39)
--- NOTE | 2024-09-24 14:50 | DVH ---
CLINICAL INFORMATION: 69 years old, Male; PULMONARY EMBOLISM. TECHNIQUE: 5.3 mCi of Xenon-133 gas was used for the ventilation portion of the exam. Posterior vent ilation imaging was obtained. 5.5 mCi of technetium 99m MAA was used for the perfusion portion of the exam. Imaging was obtained in multiple planes of projection. COMPARISON: Same day chest radiograph. FINDINGS: Perfusion imaging shows no mismatched segmental or subsegmental segmental defects. Ventilation imaging shows no defects. There is normal washout. IMPRESSION: Normal exam. No evidence of pulmonary embolism.
[2024-09-24 14:59] LABS: Basophils # (auto) 0 10 ^3/uL (0-0.2); Basophils % (auto) 0.4 % (0.0-2.0); Eosinophils # (auto) 0 10 ^3/uL (0-0.8); Eosinophils % (auto) 0.3 % (0.0-7.0); Hematocrit 42.5 % (41.0-53.0); Hemoglobin 13.8 g/dL (13.5-17.5); Lymphocytes # (auto) 0.6 10 ^3/uL (0.4-5.4); Lymphocytes % (auto) 5.9 % (10.0-50.0); Mean Corpuscular Hemoglobin 28.7 pg (28.0-32.0); Mean Corpuscular Hgb Conc. 32.5 g/dL (32.0-36.0); Mean Corpuscular Volume 88.2 fL (80.0-100.0); Monocytes # (auto) 0.4 10 ^3/uL (0-1.3); Monocytes % (auto) 3.3 % (0.0-12.0); Neutrophils # (auto) 9.9 10 ^3/uL (1.6-8.6); Neutrophils % (auto) 90.1 % (37.0-80.0); Platelet Count (auto) 432 10^3/uL (140-450); Red Blood Cells 4.82 10^6/uL (4.5-5.90); Red Cell Distribution Width 14.5 % (11.8-14.3)
[2024-09-24 15:13] LABS: Potassium 4.5 mmol/L (3.5-5.1)
[2024-09-24 15:14] LABS: Anion Gap 8 (5-15); Calcium 9.4 mg/dL (8.7-10.4); Carbon Dioxide 28 mmol/L (20-31)
[2024-09-24 15:24] LABS: Blood Urea Nitrogen 25 mg/dL (9-23)
[2024-09-24 15:27] LABS: Chloride 97 mmol/L (98-107); Sodium 133 mmol/L (136-145)
[2024-09-24 15:29] LABS: Glucose 307 mg/dL (74-106)
--- NOTE | 2024-09-24 15:51 | DVHPNRES ---
Progress Note Date Seen: Sep 24, 2024 Resident Creating Document: RUFINA CARUSO RESIDENT Medical Necessity Reason Pt with a Central, PICC or Fol: No Subjective Review of Systems Robert Johnson is a 69-year-old male who presents to the ED with progressive dyspnea from functional class II to function class IV, associated with productive cough with green sputum and oppressive retrosternal chest triggered by coughing. Patient reports symptoms started after being exposed and a cruise ship with sick contacts. Patient has pulse ox at home and evidence 76% saturation, use oxygen that daughter had, and probably visited the ER. Denies any other associated symptoms. Past Medical History Hypertension, Diabetes mellitus, Hyperlipidemia Asthma Morbid obesity ,Sleep apnea with requirement of CPAP during nights Surgical history: Denies Family history: Noncontributory Social history: Lives in [place] with family. Denies current or history of tobacco, alcohol and other drug abuse. He does report secondhand smoking (mother used to be a chain smoker) Allergies: Penicillin Home medication: Aspirin 81 mg p.o. daily, clonidine, gabapentin 100 mg p.o. daily, metformin 500 mg p.o. b.i.d., amlodipine 10 mg p.o. daily, fluoxetine 20 mg p.o. daily, glipizide 10 mg p.o. b.i.d., losartan 50 mg p.o. daily, lovastatin 10 mg p.o. daily, Lantus Patient seen and examined at bedside. Currently has no new complaints, dyspnea mildly has improved, titrating down oxygen requirement (nasal cannula 3 liters/minute) Objective vital signs Vital Sign Date Time Temp Pulse Resp B/P (MAP) Pulse Ox O2 Delivery O2 Flow Rate FiO2 09/24/24 13:00 97.5 69 18 168/86 (113) 96 97.5 09/24/24 08:00 Nasal Cannula* 3 32 Total Intake and Output 09/23/24 09/23/24 09/24/24 15:00 23:00 07:00 Intake Total 300 ml 950 ml 800 ml Output Total 800 ml Balance 300 ml 150 ml 800 ml medications Current Medications Medications Dose Ordered Sig/Cinthia Route Start Time Stop Time Status Last Admin Dose Admin Morphine Sulfate 2 mg Q30M PRN IV 09/21/24 22:30 Ceftriaxone Sodium 50 ml @ 100 mls/hr DAILY IV 09/21/24 22:30 09/24/24 10:33 100 MLS/HR Azithromycin 250 ml @ 125 mls/hr DAILY IV 09/22/24 10:00 09/24/24 12:10 125 MLS/HR Fluoxetine HCl 20 mg DAILY PO 09/22/24 10:00 09/24/24 10:39 20 MG Insulin Glargine 30 units HS SC 09/22/24 22:00 09/23/24 22:12 30 UNITS Losartan Potassium 50 mg DAILY PO 09/22/24 10:00 09/24/24 10:37 50 MG Clonidine HCl 0.1 mg Q4HP PRN PO 09/22/24 05:00 09/24/24 02:13 0.1 MG Enoxaparin Sodium 140 mg Q12HR SC 09/22/24 22:00 09/24/24 10:48 140 MG Albuterol 2.5 mg Q4HPRN PRN NEB 09/22/24 17:15 09/22/24 20:40 2.5 MG Ipratropium [place] 0.5 mg Q4HPRN PRN NEB 09/22/24 17:15 09/22/24 20:40 0.5 MG Methylprednisolone Sodium Succinate 40 mg BID IV 09/23/24 10:00 09/24/24 10:37 40 MG Sodium Chloride 1,000 ml @ 50 mls/hr Q20H IV 09/22/24 20:00 09/22/24 20:14 50 MLS/HR Diagnostic Test (Pha) 1 strip IQ4HR 09/23/24 12:00 09/24/24 11:29 1 STRIP Insulin Human Regular IQ4HR SC 09/23/24 12:00 09/24/24 12:11 12 UNITS Dextrose 50 ml UD PRN IV 09/23/24 09:15 Amlodipine Besylate 10 mg DAILY PO 09/24/24 10:00 09/24/24 10:38 10 MG Hydrochlorothiazide 12.5 mg DAILY PO 09/24/24 10:00 09/24/24 10:39 12.5 MG Examination Patient lying in bed, in no acute distress General: Lucid, afebrile, mucosae are moist Cardiovascular: Normal S1 and S2. No murmurs, gallops or rubs Respiratory: Normal ventilation mechanics. Mild rhonchus on right base, rest of auscultation clear. Continues with oxygen requirement with nasal cannula 3 liters/minute Abdomen: Soft, nontender, no organomegaly, normal bowel sounds MSK/skin: Mobilizes 4 limbs. Skin is dry and warm Neurological: Oriented in 3 spheres. No motor no sensitive deficits. Pupils are isocoric and reactive laboratory and microbiology Laboratory Tests 09/24/24 14:20 Test 09/24/24 14:20 Range/Units Serum Glucose 307 H 74-106 mg/dL Microbiology Date/Time Source Procedure Growth Status 09/22/24 23:10 Voided Urine Urine Culture - Preliminary Resulted 09/22/24 12:20 Sputum Gram Stain - Final Resulted 09/22/24 12:20 Sputum Respiratory Culture - Preliminary Resulted 09/22/24 08:50 Blood Blood Culture - Preliminary NO GROWTH AFTER 48 HOURS OF INCUBATION. Resulted 09/22/24 03:18 Nose MRSA Screen - Final Complete Problem List/Assessment/Plan Problem List/Assessment/Plan # Acute Hypoxic Respiratory Failure probably secondary to pneumonia Currently on oxygen therapy (nasal cannula 3 liters/minute), bronchodilators, IV steroids and empiric IV antibiotics Currently in telemetry status # Pneumonia gram +/ gram neg Chest x-ray evidence multifocal opacities Currently under empiric IV antibiotic (azithromycin and ceftriaxone) # Ruled out Pulmonary Embolism Elevated D-dimer (nonspecific) EKG shows sinus tachycardia, RBBB, S I/Q III/T III. V/Q negative for PE Leg US neg DVT Discontinue therapeutic enoxaparin Completed echocardiogram: LVEF 55%, mild LVH, normal RV function # Hypertensive emergency Improved with home medication and treatment of hypoxia Currently on losartan 100 mg p.o. daily, amlodipine 10 mg p.o. daily, and carvedilol 3.125 mg p.o. b.i.d. Gave advice on healthy lifestyle habits # ELIER due to hypertensive emergency Improving Monitor renal function # Leukocytosis Secondary to steroids # Obstructive sleep apnea Indicated CPAP during night # Asthma Continue with bronchodilators treatment # Morbid obesity Gave her advice on healthy lifestyle habits # Diabetes Continue Lantus and insulin sliding scale. Increased to 40 units p.o. daily Monitor glucose levels Goals of care discussed with patient for over 18 minutes: Full code status Case discussed with Dr Miranda, patient and nurses: Patient still requires high requirements of oxygen therapy, on IV antibiotics, IV steroids (decreased to 40 mg IV daily) and bronchodilators. V/Q scan negative for PE, have discontinued therapeutic enoxaparin. Adjusted Lantus and antihypertensive medication. Continue with current management. Plan discussed with: Patient, Other (Nurses) My Orders My Orders Orders - RUFINA CARUSO Procedure Category Date Status Time Complete Blood Count LAB 09/25/24 Verified 04:00 Basic Metabolic Panel LAB 09/25/24 Verified 04:00 Chest Xray 1 View XY 09/24/24 Resulted 07:35 Pt Request For Service PT 09/24/24 Logged 13:18 Date of Service: Sep 24, 2024 Billing Provider: MARV MIRANDA MD Common Visit Codes: [id number] INP/OBS CARE(HIGH) RUFINA CARUSO Sep 24, 2024 15:51 MARV MIRANDA MD Sep 25, 2024 16:14
[2024-09-24] MEDS: LEVALBUTEROL HCL 1.25 MG/3 ML NEB NEB SCH (19:26)
[2024-09-24] MEDS: INSULIN LANTUS (GLARGINE) 1 /0.01ml (100units/ml) SC SCH (22:08)
[2024-09-24] MEDS: CARVEDILOL 3.125 MG TAB PO SCH (22:09)
[2024-09-25] VITALS (13 sets, daily range): BP systolic 113–160; BP diastolic 61–77; PULSE 67–76; RESP 16–20; TEMP 97.8–98.4; O2SAT 92–100
[2024-09-25 07:28] LABS: Basophils # (auto) 0 10 ^3/uL (0-0.2); Eosinophils # (auto) 0.1 10 ^3/uL (0-0.8); Lymphocytes # (auto) 1.8 10 ^3/uL (0.4-5.4); Monocytes # (auto) 0.8 10 ^3/uL (0-1.3); Red Cell Distribution Width 14.4 % (11.8-14.3)
[2024-09-25 07:31] LABS: Basophils % (auto) 0.2 % (0.0-2.0); Eosinophils % (auto) 1.7 % (0.0-7.0); Hematocrit 41.9 % (41.0-53.0); Hemoglobin 13.9 g/dL (13.5-17.5); Lymphocytes % (auto) 21.1 % (10.0-50.0); Mean Corpuscular Hemoglobin 28.7 pg (28.0-32.0); Mean Corpuscular Hgb Conc. 33.2 g/dL (32.0-36.0); Mean Corpuscular Volume 86.6 fL (80.0-100.0); Monocytes % (auto) 9.5 % (0.0-12.0); Neutrophils # (auto) 5.8 10 ^3/uL (1.6-8.6); Neutrophils % (auto) 67.5 % (37.0-80.0); Nucleated Red Blood Cells % 0.2 %; Platelet Count (auto) 459 10^3/uL (140-450); Red Blood Cells 4.84 10^6/uL (4.5-5.90); White Blood Cell 8.6 10^3/uL (4.4-10.8)
[2024-09-25 07:56] LABS: Chloride 99 mmol/L (98-107); Sodium 138 mmol/L (136-145)
[2024-09-25 07:57] LABS: Anion Gap 7 (5-15); Calcium 9.4 mg/dL (8.7-10.4)
[2024-09-25 08:02] LABS: BUN/Creatinine Ratio 24.1 (10.0-20.0)
[2024-09-25 08:05] LABS: Potassium 3.5 mmol/L (3.5-5.1)
[2024-09-25 08:06] LABS: Blood Urea Nitrogen 28 mg/dL (9-23); Carbon Dioxide 32 mmol/L (20-31); Glucose 65 mg/dL (74-106)
[2024-09-25] MEDS: POTASSIUM EFFERVESENT TAB 25 MEQ PO ONE (09:26)
[2024-09-25] MEDS: ENOXAPARIN SOD 40 MG/0.4 ML SYRINGE SC SCH (09:27)
[2024-09-25] MEDS: LOSARTAN POTASSIUM 50 MG TAB PO SCH (09:28)
[2024-09-25] MEDS ORDERED: LEVO500T91 PO (09:42)
[2024-09-25] MEDS ORDERED: PRED20TA2 PO (09:42)
[2024-09-25] MEDS ORDERED: LOSA-534 PO (09:42)
[2024-09-25] MEDS ORDERED: HYDR25TA5 PO (09:42)
[2024-09-25] MEDS ORDERED: CARV-214 PO (09:42)
[2024-09-25] MEDS ORDERED: methylPREDNISolone SOD SUCC 40 MG/ML VL IV SCH (10:00)
--- NOTE | 2024-09-25 16:35 | DVHDSRES ---
Discharge Summary Date of Admission Resident Creating Document: RUFINA CARUSO RESIDENT Sep 21, 2024 at 22:22 Date of Discharge: Sep 25, 2024 Labs/Diagnostic Data: Laboratory Results Test 09/25/24 12:03 09/25/24 06:33 09/22/24 23:10 09/22/24 08:50 POC Glucose 182 mg/dl (70-106) White Blood Count 8.6 10^3/uL (4.4-10.8) Red Blood Count 4.84 10^6/uL (4.5-5.90) Hemoglobin 13.9 g/dL (13.5-17.5) Hematocrit 41.9 % (41.0-53.0) Mean Corpuscular Volume 86.6 fL (80.0-100.0) Mean Corpuscular Hemoglobin 28.7 pg (28.0-32.0) Mean Corpuscular Hemoglobin Concent 33.2 g/dL (32.0-36.0) Red Cell Distribution Width 14.4 % (11.8-14.3) Platelet Count 459 10^3/uL (140-450) Mean Platelet Volume 6.9 fL (6.9-10.8) Neutrophils (%) (Auto) 67.5 % (37.0-80.0) Lymphocytes (%) (Auto) 21.1 % (10.0-50.0) Monocytes (%) (Auto) 9.5 % (0.0-12.0) Eosinophils (%) (Auto) 1.7 % (0.0-7.0) Basophils (%) (Auto) 0.2 % (0.0-2.0) Neutrophils # (Auto) 5.8 10 ^3/uL (1.6-8.6) Lymphocytes # (Auto) 1.8 10 ^3/uL (0.4-5.4) Monocytes # (Auto) 0.8 10 ^3/uL (0-1.3) Eosinophils # (Auto) 0.1 10 ^3/uL (0-0.8) Basophils # (Auto) 0 10 ^3/uL (0-0.2) Nucleated Red Blood Cells 0.2 % Sodium Level 138 mmol/L (136-145) Potassium Level 3.5 mmol/L (3.5-5.1) Chloride Level 99 mmol/L (98-107) Carbon Dioxide Level 32 mmol/L (20-31) Anion Gap 7 (5-15) Blood Urea Nitrogen 28 mg/dL (9-23) Creatinine 1.16 mg/dL (0.700-1.30) Glomerular Filtration Rate Calc 68 mL/min (>90) BUN/Creatinine Ratio 24.1 (10.0-20.0) Serum Glucose 65 mg/dL (74-106) Calcium Level 9.4 mg/dL (8.7-10.4) Urine Opiates Screen Neg (NEGATIVE) Urine Fentanyl Screen Neg (NEGATIVE) Urine Barbiturates Screen Neg (NEGATIVE) Urine Phencyclidine Screen Neg (NEGATIVE) Urine Amphetamines Screen Neg (NEGATIVE) Urine Benzodiazepines Screen Neg (NEGATIVE) Urine Cocaine Screen Neg (NEGATIVE) Urine Cannabinoids Screen Neg (NEGATIVE) Prothrombin Time 11.5 sec (9.3-11.8) Prothrombin Time INR 1.09 (0.9-1.15) Activated Partial Thromboplast Time 29.1 SEC (24.5-34.5) Phosphorus Level 3.3 mg/dL (2.4-5.1) Magnesium Level 2.4 mg/dL (1.6-2.6) Total Bilirubin 0.7 mg/dL (0.2-1.0) Aspartate Amino Transferase (AST) 15 U/L (13-40) Alanine Aminotransferase (ALT) 17 U/L (7-40) Alkaline Phosphatase 52 U/L (46-116) Total Protein 6.7 g/dL (5.7-8.2) Albumin 4.0 g/dL (3.2-4.8) Thyroid Stimulating Hormone (TSH) 0.75 uIU/mL (0.55-4.78) Test 09/22/24 00:00 09/21/24 23:55 09/21/24 23:03 09/21/24 22:40 Influenza Type A Antigen Negative (Negative) Influenza Type B Antigen Negative (Negative) SARS-CoV-2 Antigen (Rapid) Negative (NEGATIVE) Urine Color Yellow (Yellow) Urine Clarity Clear (Clear) Urine pH 6.0 (5.0-9.0) Urine Specific [place] 1.013 (1.001-1.035) Urine Protein 3+ (Negative) Urine Ketones Trace (Negative) Urine Blood 1+ /uL (Negative) Urine Nitrite Negative (Negative) Urine Bilirubin Negative (Negative) Urine Urobilinogen 2 mg/dL (Negative) Urine Leukocyte Esterase Negative /uL (Negative) Urine RBC 4 /hpf (0 - 3) Urine Microscopic WBC 1 /HPF (0-3) Urine Squamous Epithelial Cells None seen /hpf (<5) Urine Bacteria None seen /hpf (None Seen) Urine Glucose 3+ mg/dL (Normal) Blood Gas Specimen Type Arterial Blood Gas Sample Site Left radial Blood Gas Patient Temperature 37.0 Arterial Blood Date Drawn Arterial Blood pH 7.420 (7.350-7.450) Arterial Blood Partial Pressure CO2 40.8 mmHg (35.0-48.0) Arterial Blood Partial Pressure O2 68.3 mmHg (83.0-108.0) Arterial Blood HCO3 25.9 mmol/L (21.0-28.0) Arterial Blood Oxygen Saturation 92.4 % (94.0-98.0) Arterial Blood Base Excess 1.3 mmol/L (-2.0-3.0) Arterial Blood Oxyhemoglobin 90.6 % (94.0-98.0) Arterial Blood Carboxyhemoglobin 1.6 % (0.5-1.5) Arterial Blood Methemoglobin 0.4 % (0.0-1.5) Hunter Test Yes Blood Gas Total Hemoglobin 13.20 g/dL (13.5-17.5) Blood Gas Liter Flow 5.00 Blood Gas Modality Nasal cannula FiO2 % 40.0 Hemoglobin A1c 8.5 % A1C (<5.7) Lactic Acid Level 1.5 mmol/L (0.4-2.0) C-Reactive Protein High Sensitivity 8.79 mg/dL (<1.0) Test 09/21/24 19:15 09/21/24 18:19 Troponin I High Sensitivity 19 ng/L (</=54) D-Dimer, Quantitative 2.37 mg/L FEU (0.0-0.49) B-Type Natriuretic Peptide 150.58 pg/mL (0-100) Other Laboratory Tests 09/25/24 06:33 Brief Hx & Hospital Course: Robert Johnson is a 69-year-old male who presents to the ED with progressive dyspnea from functional class II to function class IV, associated with productive cough with green sputum and oppressive retrosternal chest triggered by coughing. Patient reports symptoms started after being exposed and a cruise ship with sick contacts. Patient has pulse ox at home and evidence 76% saturation, use oxygen that daughter had, and probably visited the ER. Denies any other associated symptoms. Past Medical History Hypertension, Diabetes mellitus, Hyperlipidemia Asthma Morbid obesity ,Sleep apnea with requirement of CPAP during nights Surgical history: Denies Family history: Noncontributory Social history: [place] in [place] with family. Denies current or history of tobacco, alcohol and other drug abuse. He does report secondhand smoking (mother used to be a chain smoker) Allergies: Penicillin Home medication: Aspirin 81 mg p.o. daily, clonidine, gabapentin 100 mg p.o. daily, metformin 500 mg p.o. b.i.d., amlodipine 10 mg p.o. daily, fluoxetine 20 mg p.o. daily, glipizide 10 mg p.o. b.i.d., losartan 50 mg p.o. daily, lovastatin 10 mg p.o. daily, Lantus Brief hospital course: Acute hypoxic respiratory failure secondary to pneumonia Gram-positive/Gram-negative associated with hypertensive emergency and ELIER, responding to IV antibiotics (ceftriaxone and azithromycin), oxygen therapy (maximum nasal cannula 5 liters/minute), IV fluids and IV steroids. On admission ruled out pulmonary embolism with V/Q scan, and also ruled out DVT with lower limb ultrasound. Completed echocardiogram which showed LVEF 55%, mild LVH, normal RV function. Patient hemodynamically stable, asymptomatic, with no oxygen requirement, in condition to be discharged home. 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 No murmurs, gallops or rubs Respiratory: Normal ventilation mechanics. Mild rhonchus on right base, rest of auscultation clear. Continues with oxygen requirement with nasal cannula 3 liters/minute Abdomen: Soft, nontender, no organomegaly, normal bowel sounds MSK/skin: Mobilizes 4 limbs. Skin is dry and warm Neurological: Oriented in 3 spheres. No motor no sensitive deficits. Pupils are isocoric and reactive Goals of care discussed with patient for over 18 minutes: Full code status Case discussed with Dr Okeefe, patient and nurses. Operations or Procedures EXAMINATION: AP portable chest radiograph CLINICAL HISTORY: Shortness of breath COMPARISON: None FINDINGS: Interstitial prominence. Diffuse patchy airspace opacities in both lungs, more apparent on the right. No definite pleural effusion or pneumothorax. Aortic calcifications. The cardiomediastinal silhouette otherwise appears within normal limits given technique. IMPRESSION: Multifocal airspace opacities may reflect infection and/or edema. ATED BY: ERVIN SERRANO MD DICTATED DATE/TIME: 09/21/24 9208 Bilateral lower extremity venous duplex Clinical History: rule out dvt Comparison: None Technique: Duplex Doppler evaluation of the deep venous systems of both lower extremities from the common femoral veins to the popliteal veins including color Doppler and spectral/pulsed waveform analysis was performed. Findings: RIGHT SIDE: The common femoral vein demonstrates appropriate compressibility and waveform variability. There is compressibility/patency of the great saphenous vein at the proximal thigh. The femoral vein demonstrates appropriate compressibility and waveform variability. The deep femoral vein demonstrates appropriate compressibility and waveform variability. The popliteal vein demonstrates appropriate compressibility and waveform variability. There is normal compressibility at the tibioperoneal trunk. LEFT SIDE: The common femoral vein demonstrates appropriate compressibility and waveform variability. There is compressibility/patency of the great saphenous vein at the proximal thigh. The femoral vein demonstrates appropriate compressibility and waveform variability. The deep femoral vein demonstrates appropriate compressibility and waveform variability. The popliteal vein demonstrates appropriate compressibility and waveform variability. There is normal compressibility at the tibioperoneal trunk. Impression: No right or left femoropopliteal venous thrombosis. ATED BY: NARCISA BEAR DO DICTATED DATE/TIME: 09/21/24 4006 CLINICAL INFORMATION: 69 years old, Male; PULMONARY EMBOLISM. TECHNIQUE: 5.3 mCi of Xenon-133 gas was used for the ventilation portion of the exam. Posterior ventilation imaging was obtained. 5.5 mCi of technetium 99m MAA was used for the perfusion portion of the exam. Imaging was obtained in multiple planes of projection. COMPARISON: Same day chest radiograph. FINDINGS: Perfusion imaging shows no mismatched segmental or subsegmental segmental defects. Ventilation imaging shows no defects. There is normal washout. IMPRESSION: Normal exam. No evidence of pulmonary embolism. ATED BY: BHARATHI CONKLIN DO DICTATED DATE/TIME: 09/24/24 2404 EXAM: Two-dimensional and M-mode echocardiogram with Doppler and color Doppler. Blood Pressure: 141/63 mmHg INDICATION Evaluate LVEF RISK FACTORS Obesity: Height: 5'8", Weight: 305 DIMENSIONS LVDd 4.9 (3.8-5.7cm) LA (2D) 3.9 (1.9-4.0cm) Aortic Root 3.7 (2.0- 3.7cm) LVDs 3.1 (2.5-4.0cm) LA (MM) (1.9-4.0cm) Aortic Cusp Exc 1.2 (1.5- 2.0cm) EF (%) 60.0 (55-70%) Rt. Atrium 4.4 (1.9-4.0cm) Asc. Aorta cm IVSd 1.3 (0.7-1.1cm) RV (D) (1.8-2.4cm) PWd 1.3 (0.7-1.1cm) Mitral Valve Mitral Mitral Stenosis E wave 1.15m/s MV Mean GR. mmHg A wave 1.15m/s MV Peak GR. mmHg E/A ratio 1.0 2D MVA cm2 DECEL Time 213ms PRESS 1/2 Time ms Aortic Valve Aortic Valve Aortic Stenosis V1 1.19m/s AO Mean GR. 4mmHg V2 1.41m/s AO Peak GR. 8mmHg LVOT Diameter 1.9 (1.8-2.4cm) Doppler ALEM 2.39cm2 Pulmonic Valve V2 0.93m/s Tricuspid Valve TR Velocity 2.69m/s RVSP 32mmHg Other Information Technically limited study due to body habitus. Conclusion lvef 55% by visual estimate mild LVH normal rv function normal atria no severe valve abnormaliteis noted SIGNED BY: ERVIN VALDIVIA MD SIGNED DATE/TIME: 09/24/24 0803 Condition at Discharge: Fair Final Diagnosis/Problems List # Acute Hypoxic Respiratory Failure probably secondary to pneumonia # Pneumonia gram +/ gram neg # Ruled out Pulmonary Embolism # Hypertensive emergency # ELIER hemodynamically mediated due to hypertensive emergency # Leukocytosis # Obstructive sleep apnea # Asthma # Morbid obesity # Diabetes Discharge Disposition: Home SNF Discharge Will this Physician continue t: No Discharge Instruct/Medications Diet: Consistent carbohydrate, Cardiac 2g Na,low cholest Diet comment: Consistent carbohydrate Activity: No Restrictions, As Tolerated Follow Up/Referral: PCP Pulmonology Medications: Levofloxacin for 3 days Rest per EMR Discharge Statement: "Patient was advised to return to the ER or call 911 if any headaches, dizziness, shortness of breath, chest pain, abdominal pain, bleeding, fevers, or worsening of medical condition. Patient was counseled about treatment plan, medications, possible side effects, patientverbalized understanding. All questions were answered to the best of my ability. This discharge took greater then 30 minutes in planning, reviewing documentation, counseling the patient, and discussing with other team members." ASSESSMENT ASSESSMENT Assessment Date of Service: Sep 25, 2024 Billing Provider: MARV OKEEFE MD Common Visit Codes: 07825-[place]W/OBS DISCH DAY >30min RUFINA CARUSO Sep 25, 2024 16:35 MARV OKEEFE MD Sep 26, 2024 09:09
[2024-09-25] MEDS ORDERED: INSULIN LANTUS (GLARGINE) 1 /0.01ml (100units/ml) SC SCH (22:00)
== END 2024-09-25 17:00 | disposition home or self-care (01) | DRG 177 ==
LOC: ER 17:54 → EDBD 17:54 → OVERFLOW 22:22 → TELE-WESTW 09-22 03:18
PROVIDERS: ADMIT Student in an Organized Health Care Education/Training Program; ATTEND Student in an Organized Health Care Education/Training Program
PROC: 5A09357 Assistance with Respiratory Ventilation, Less than 24 Consecutive Hours, Continuous Positive Airway Pressure (ICD-10-PCS; principal; 2024-09-22)
PROC: 5A09357 Assistance with Respiratory Ventilation, Less than 24 Consecutive Hours, Continuous Positive Airway Pressure (ICD-10-PCS; 2024-09-23)
PROC: 5A09357 Assistance with Respiratory Ventilation, Less than 24 Consecutive Hours, Continuous Positive Airway Pressure (ICD-10-PCS; 2024-09-24)
DX: J15.69 Pneumonia due to other Gram-negative bacteria (principal); J96.01 Acute respiratory failure with hypoxia; N17.9 Acute kidney failure, unspecified; I16.1 Hypertensive emergency; Z68.42 Body mass index [BMI] 45.0-49.9, adult; J15.9 Unspecified bacterial pneumonia; G47.33 Obstructive sleep apnea (adult) (pediatric); E66.01 Morbid (severe) obesity due to excess calories; J45.909 Unspecified asthma, uncomplicated; D72.829 Elevated white blood cell count, unspecified; E78.5 Hyperlipidemia, unspecified; E11.9 Type 2 diabetes mellitus without complications; I10 Essential (primary) hypertension; Z20.822 Contact with and (suspected) exposure to COVID-19; Z88.0 Allergy status to penicillin
CPT/HCPCS: 36415; 36600; 71045; 78582; 80048; 80053; 80307; 81001; 82805; 82962; 83036; 83605; 83735; 83880; 84100; 84443; 84484; 85025; 85379; 85610; 85730; 86141; 87040; 87070; 87081; 87086; 87205; 87426; 87804; 93005; 93306; 93970; 94640; 94660; 96365; 96375; 97163; G0378; J1100; J1815